=== PATIENT | male | born 1995 | race Hispanic/Latino ===

== ENCOUNTER 2019-02-01 23:07 | Emergency (ER) | payer OTHER ==
[2019-02-02] MEDS ORDERED: PREDNISONE 20 MG TABLET ONE (01:01)
[2019-02-02] MEDS ORDERED: DIPHENHYDRAMINE HCL 25 MG CAPSULE ONE (01:01)
[2019-02-02] MEDS ORDERED: FAMOTIDINE 20MG TAB 20 MG TAB ONE (01:01)
== END 2019-02-02 01:51 | disposition home or self-care (01) ==
LOC: EDH 23:07
DX: T78.1XXA Other adverse food reactions, not elsewhere classified, initial encounter (principal); R21 Rash and other nonspecific skin eruption; X58.XXXA Exposure to other specified factors, initial encounter; Z87.891 Personal history of nicotine dependence
CPT/HCPCS: 99284; Q0163